=== PATIENT | female | born 1955 | race Caucasian/White ===

== ENCOUNTER 2017-04-01 10:44 | Outpatient (CLI) ==
--- NOTE | 2017-04-01 12:06 | MAMMO ---
EXAM: Bilateral digital screening mammogram History: Screening Comparison: None available. Findings: MLO and CC views of bilateral breasts demonstrate scattered fibroglandular breast parench yma. Benign bilateral breast calcifications. There are no dominant masses, no suspicious microcalc ifications and no architectural distortions Impression: Benign mammogram. Recommend followup routine screening mammography in 1 year. BIRADS 2
== END 2017-04-01 10:45 | disposition home or self-care (01) ==
LOC: RAD 10:44
PROVIDERS: ATTEND Physician Assistant
DX: Z12.31 Encounter for screening mammogram for malignant neoplasm of breast (principal)

== ENCOUNTER 2018-05-08 12:49 | Outpatient (CLI) | END 2018-05-08 12:50 | disposition home or self-care (01) | LOC: LAB 12:49 | PROVIDERS: ATTEND Family Medicine | DX: I50.42 Chronic combined systolic (congestive) and diastolic (congestive) heart failure (principal); J44.9 Chronic obstructive pulmonary disease, unspecified; C34.31 Malignant neoplasm of lower lobe, right bronchus or lung | CPT/HCPCS: 36415; 80053; 85025 ==

== ENCOUNTER 2018-07-10 14:41 | Outpatient (CLI) | END 2018-07-10 14:42 | disposition home or self-care (01) | LOC: LAB 14:41 | PROVIDERS: ATTEND Internal Medicine Hematology & Oncology | DX: C34.31 Malignant neoplasm of lower lobe, right bronchus or lung (principal); E87.6 Hypokalemia | CPT/HCPCS: 36415; 83735 ==

== ENCOUNTER 2018-08-28 12:15 | Outpatient (CLI) | END 2018-08-28 12:16 | disposition home or self-care (01) | LOC: LAB 12:15 | PROVIDERS: ATTEND Family Medicine | DX: C34.31 Malignant neoplasm of lower lobe, right bronchus or lung (principal); J44.1 Chronic obstructive pulmonary disease with (acute) exacerbation; F41.9 Anxiety disorder, unspecified; F32.9 Major depressive disorder, single episode, unspecified; F17.200 Nicotine dependence, unspecified, uncomplicated | CPT/HCPCS: 36415; 80053; 85025 ==

== ENCOUNTER 2018-11-28 14:12 | Outpatient (CLI) | payer OTHER | END 2018-11-28 14:24 | disposition short-term general hospital (02) | LOC: AMBL 14:12 | PROVIDERS: ATTEND Internal Medicine | DX: R06.02 Shortness of breath (principal); R05 Cough; C34.90 Malignant neoplasm of unspecified part of unspecified bronchus or lung; R00.0 Tachycardia, unspecified; J18.9 Pneumonia, unspecified organism ==

== ENCOUNTER 2018-12-21 14:48 | Outpatient (CLI) | payer OTHER | END 2018-12-21 14:49 | disposition home or self-care (01) | LOC: LAB 14:48 | PROVIDERS: ATTEND Family Medicine | DX: E87.8 Other disorders of electrolyte and fluid balance, not elsewhere classified (principal); E55.9 Vitamin D deficiency, unspecified; I50.9 Heart failure, unspecified; F41.9 Anxiety disorder, unspecified; F32.9 Major depressive disorder, single episode, unspecified; F17.200 Nicotine dependence, unspecified, uncomplicated; J44.1 Chronic obstructive pulmonary disease with (acute) exacerbation; C34.31 Malignant neoplasm of lower lobe, right bronchus or lung | CPT/HCPCS: 36415; 80053; 82306; 85025 ==

== ENCOUNTER 2019-01-15 13:34 | Outpatient (RCR) ==
--- NOTE | 2019-01-17 09:45 | RS.OPPTEV2 ---
Date of Note: 01/15/19 Visit #: 1 Number of visits approved by Insurance: n/a Date of Evaluation: 01/15/19 Payer Source: MEDICARE Surgery Performed?: No Treatment Diagnosis: muscle weakness, balance impaired, gait difficulty History of Condition/Mechanism of Injury:: pt was hospitalized in december 2018 with pneumonia and has suffered 3 falls since dc from hospital. Prior Level of Function.....Patient was independent with: ADL's, Self Care, Ambulation/Mobility, Community Integration/Access Level of Function: pt was independent prior to hospital stay in 12/2018. Since return home from hospital, daughter has been assisting with many things. Functional Limitations: ADL's, Reaching, Pushing, Pulling, Lifting, Standing, Bending, Squatting, Ambulation, Community Access/Integration Current Subjective/complaints:: pt states she feels like she has no strength. States she is unsure what is causing her to fall. Treatment Side (optional): N/A *Precautions: fall precautions LATEX [employer]ERGY Medical History Medical History: Hypertension, COPD, CHF, Cancer (malignant neoplasm of lower lobe of R lung and Colon CA) Medical History Comments:: Hepatitis C, anxiety, depression, pericardial effusion, chronic Afib, osteoporosis Surgical History: Cholecystectomy, Tonsillectomy, Hysterectomy, Surgical History Comments:: colon resection, cardiac surgery, appey Hx Home Medications: albuterol, alprazolam, apixaban, benzonate, budesonide- formoterol, citalopram, codeine-guaifenesin, digoxin, diltiazem, diphenhyramine , lomotil, famotidine, ferrous sulfate, fluticasone-salmeterol, folic acid, hydrocodone-acetaminophen, hematogen, ativan, morphine, zofran, protonix, prednisone Patient's Goals: get stronger Pain Assessment - Pain Description Pain Location: R mid thoracic Pain Description: Sharp Current Pain Intensity: 10 Worst Pain Intensity: 10 Other Comments regarding Pain:: in area of R lower lobe Functional Outcome Measure Dynamic Gait: 10 - G Codes & Severity Modifier G Codes & Modifier: n/a Source of G Code score: n/a Observation - Observation Posture: Forward Head, Rounded Shoulders, Increased Thoracic Kyphosis Handedness: Right Gait - Gait Pattern General Gait Pattern Observation: Decrease Stride Lngth (R), Decrease Stride Lngth (L) Gait Comments: pt amb with decreased step length, flexed posture, with increased lat sway at times, occasional shuffling gait. pt amb without AD with CGA with occasional loss of balance laterally. Gait speed: 0.77 meters/sec consistent with limited community ambulator. General Range of Motion: WFL's BUE and LE Muscle Strength: BUE grossly 4-/5. BLE hip flex 4-/5, knee flex/ext 4-/5, ankle DF/PF 4/5 Palpation Palpation Findings: Tenderness Comments:: R lower thoracic tender to palpation Sensation - Sensation Right Upper Extremity: Intact/Normal Left Upper Extremity: Intact/Normal Right Lower Extremity: Intact/Normal Left Lower Extremity: Intact/Normal Balance - Sitting Balance Static Sitting Balance: Good Dynamic Sitting Balance: Fair - Standing Balance Static Standing Balance: Fair Dynamic Standing Balance: Poor - Comments Balance Assessment Comments: dynamic gait index: 08/16 consistent with high risk of falls Interventions - Exercise/Activities/Manual Therapy Exercises/Activities: pt performed isometric hip add, resisted hip abd with red theraband latex free, seated hip flex, LAQ Manual Therapy: n/a HOME EXERCISE PROGRAM: pt given written HEP including: isometric hip add, resisted hip abd, seated hip flex, LAQ. - Charges Timed Code Treatment Minutes: 49 Total Treatment Time: 61 Procedures billed for this date of service:: eval med, ex EVALUATION COMPLEXITY LEVEL EVALUATION COMPLEXITY LEVEL: HISTORY: Medium, EXAM OF BODY SYSTEMS: Medium, CLINICAL PRESENTATION: Medium, CLINICAL DECISION MAKING: Medium Assessment Assessment: pt presents with decreased strength, balance as well as decreased gait ability. Feel pt would benefit from skilled PT for therex for LE strengthening, balance activities as well as gait training to improve functional mobility and decrease risk of falls. Patient Education: Home Exercise Program, Education of Plan of Care Rehab Potential: Good Short Term Goals Goal #1: pt independent with initial HEP Goal to be met by: 02/05/19 Goal #2: pt amb in dept with no LOB Goal to be met by: 02/05/19 Goal #3: Improve BLE strength 4 to 4+/5 Goal to be met by: 02/05/19 Goal #4: Improve dyn gait index Goal to be met by: 02/05/19 Eligibility Examiner Goals Goal #1: pt able to perform normal daily activities w no falls reported Goal to be met by: 02/23/19 Goal #2: pt improve dyn gait index Goal to be met by: 02/23/19 Goal #3: Improve gait speed 0.9 meters/sec consistent with community ambulator Goal to be met by: 02/23/19 Goal #4: pt amb community distances w no LOB Goal to be met by: 02/23/19 Plan - Treatment to be Provided Procedures: Therapeutic Exercises, Therapeutic Activity, Gait Training, Neuromuscular Rehab, Patient Education Modalities: No Modalities - Treatment Plan Frequency: 2-3 x a week Duration: 6 weeks Dates of Eligibility Examiner Goals: 02/23/19 Expiration date of current Insurance Approval:: n/a - Treatment Code (1) Muscle weakness Code(s): M62.81 - MUSCLE WEAKNESS (GENERALIZED) (2) Gait difficulty Code(s): R26.9 - UNSPECIFIED ABNORMALITIES OF GAIT AND MOBILITY (3) Impairment of balance Code(s): R26.89 - OTHER ABNORMALITIES OF GAIT AND MOBILITY
--- NOTE | 2019-01-18 10:31 | RS.CXNS ---
Date of scheduled appointment: 01/19/19 Type: Cancel Reason for Cancel/NS: pt cancelled because she found she had a MD appt on this date. Rescheduled to tuesday01/22/19.
== END 2019-01-21 23:59 ==
PROVIDERS: ATTEND Family Medicine
DX: R29.898 Other symptoms and signs involving the musculoskeletal system (principal)

== ENCOUNTER 2019-01-26 14:06 | Outpatient (RCR) ==
--- NOTE | 2019-01-22 11:23 | RS.CXNS ---
Date of scheduled appointment: 01/22/19 Type: No Show Reason for Cancel/NS: Unknown
--- NOTE | 2019-01-24 13:14 | RS.CXNS ---
Date of scheduled appointment: 01/24/19 Type: Rescheduled (No transportation today , next appt. is Tuesday01-26-19)
--- NOTE | 2019-01-26 15:05 | RS.OPPTDN ---
Subjective Date of Note: 01/26/19 Visit #: 2 Number of visits approved by Insurance: na Date of Evaluation: 01/15/19 Payer Source: MEDICARE Treatment Diagnosis: muscle weakness, balance impaired, gait difficulty Current Subjective/complaints:: Patient states she has fallen in the past. States she doesn't know what causes it, but thinks she gets up too fast and has trouble if she turns her heaad too fast. States she has been working on HEP. *Precautions: fall precautions LATEX [employer]ERGY Pain Assessment - Pain Description Pain Location: lowback Current Pain Intensity: mod to high Interventions - Exercise/Activities/Manual Therapy Exercises/Activities: In sitting, isometric hip add with ball. FAQ and anlt hip flexion with 1 1/2# to each ankle. Resisted hip abd with red theraband latex free and scap retraction. Active reaching. In standing at handrail, mini- squats, marching, alt hip abd, and head turns while standing with CAGE LOADER. Leg press 30#, 4s/10reps slow pace with breaks. Patient assisted onto stationary bike, slow pace 4mins, alt forward and retro. Discussion of safety with home activities and HEP. Patient given new theraband and copy of HEP. Total minutes of Exercise: 39mins Manual Therapy: n/a HOME EXERCISE PROGRAM: pt given written HEP including: isometric hip add, resisted hip abd, seated hip flex, LAQ. - Charges Timed Code Treatment Minutes: 39mins Total Treatment Time: 44mins Procedures billed for this date of service:: EX3 Assessment: Patient attentive to instruction and seems motivated to progress with HEP. Patient Education: Home Exercise Program, Home Safety, Activity Modification Comments: Patient education of HEP and safety with ADL's. Patient demonstrates compliance with HEP?: Yes Short Term Goals Goal #1: pt independent with initial HEP Goal to be met by: 02/05/19 Progress towards Goal:: Progressing Goal #2: pt amb in dept with no LOB Goal to be met by: 02/05/19 Progress towards Goal:: Progressing Goal #3: Improve BLE strength 4 to 4+/5 Goal to be met by: 02/05/19 Goal #4: Improve dyn gait index Goal to be met by: 02/05/19 Silk Screen Printer Goals Goal #1: pt able to perform normal daily activities w no falls reported Goal to be met by: 02/23/19 Goal #2: pt improve dyn gait index Goal to be met by: 02/23/19 Goal #3: Improve gait speed 0.9 meters/sec consistent with community ambulator Goal to be met by: 02/23/19 Goal #4: pt amb community distances w no LOB Goal to be met by: 02/23/19 Plan Dates of Alf Goals: 02/23/19 Expiration date of current Insurance Approval:: 02/23/19 PLAN: Progress with balance and strengthening to increase safety and functional independence.
--- NOTE | 2019-01-29 15:29 | RS.CXNS ---
Date of scheduled appointment: 01/29/19 Type: No Show
--- NOTE | 2019-01-31 11:38 | RS.CXNS ---
Date of scheduled appointment: 01/31/19 Type: Cancel Reason for Cancel/NS: Patient's dtr calls to say her mother is sick and may be taking her to the ER
== END 2019-02-20 23:59 ==
PROVIDERS: ATTEND Family Medicine
DX: R29.898 Other symptoms and signs involving the musculoskeletal system (principal); M62.81 Muscle weakness (generalized); R26.9 Unspecified abnormalities of gait and mobility; R26.89 Other abnormalities of gait and mobility